=== PATIENT | female | born 1970 | race African-American/Black ===

== ENCOUNTER 2016-05-01 05:43 | Emergency (ER) | payer OTHER ==
--- NOTE | ~2016-05-01 | CT4 ---
[facility] A Service of [facility] RADIOLOGY TEXT RESULTS PATIENT: JEREMIE FINE LOCATION: SED : 68 UNIT #: [id number] AGE: [address]: Dhruv Sosa MD SEX: F ORDER DR: [id number] [place] [id number] E MR#: [id number] #: [id number] NAME: JEREMIE FINE : 1970 SEX: F STUDY DATE/TIME: 05/01/2016 6:10 UNIT: SED ROOM: STUDY DESCRIPTION: CT Abd and Pelv Wo Cont Attending Physician: Dhruv Sosa M.D. Ordering Physician: Dhruv Sosa M.D. MEDICAL IMAGING REPORT This report is preliminary unless electronic signature is present. EXAM CT scan of the abdomen and pelvis without contrast, 05/01/2016. HISTORY Left flank pain for 3 days. Evaluate for obstructing renal calculus. TECHNIQUE Spiral CT was performed through the abdomen and pelvis without oral or intravenous contrast administration, using renal stone protocol. This CT exam was performed with one or more of the following radiation dose reduction techniques: automatic exposure control, adjustment of mA and/or kV according to patient size, and iterative reconstruction. FINDINGS ABDOMEN: There is diffuse fatty infiltration of the liver. The spleen, pancreas, gallbladder and biliary tree, and adrenal glands are normal. There is no obstructing renal or ureteral calculus. PELVIS: The gut, mesenteric and alena structures are normal. There is no free fluid in the abdomen or pelvis. IMPRESSION 1. No obstructing renal or ureteral calculus. 2. Fatty infiltration of the liver. Dictated by... Monster Quiroga M.D. THIS IS AN ELECTRONICALLY VERIFIED REPORT Monster Quiroga M.D. at 05/02/2016 2:23 PM [facility] A Service [facility] RADIOLOGY TEXT RESULTS PATIENT: JEREMIE FINE LOCATION: SED : 68 UNIT #: [id number] AGE: [address]: Dhruv Sosa MD SEX: F ORDER DR: Genie TD: 05/01/2016 11:05 JOB #: [id number] MEDICAL IMAGING REPORT
--- NOTE | ~2016-05-01 | EKG ---
PATIENT: JEREMIE FINE UNIT #: [id number] Ventricular Rate: 79 BPM Atrial Rate: 79 BPM P-R Interval: 166 ms QRS Duration: 92 ms Q-T Interval: 402 ms QTC Calculation(Bezet): 460 ms P Deering: 40 degrees Calculated R Deering: 1 degrees Calculated T Deering: 16 degrees Diagnosis Line: Normal sinus rhythm Diagnosis Line: Moderate voltage criteria for LVH, may be normal Diagnosis Line: variant Diagnosis Line: Poor R wave progression questionable lead position Diagnosis Line: or body habitus Diagnosis Line: Abnormal ECG Diagnosis Line: When compared with ECG of 24-NOV-2014 00:54, Diagnosis Line: No significant change was found Diagnosis Line: Confirmed by JAYA TOPETE MD ([id number]) on Diagnosis Line: 06/14/2016 7:00:49 AM INTERPRETING MD: CAROL
--- NOTE | ~2016-05-01 | CR63 ---
[facility]. [facility] A Service of [facility] RADIOLOGY TEXT RESULTS PATIENT: JEREMIE FINE LOCATION: SED : 68 UNIT #: [id number] AGE: [address]: Dhruv Sosa MD SEX: F ORDER DR: [id number] [place] [id number] E MR#: [id number] Acc #: [id number] NAME: JEREMIE FINE : 1970 SEX: F STUDY DATE/TIME: 05/01/2016 6:05 UNIT: SED ROOM: STUDY DESCRIPTION: CR Chest 2 View Attending Physician: Dhruv Sosa M.D. Ordering Physician: Dhruv Sosa M.D. MEDICAL IMAGING REPORT This report is preliminary unless electronic signature is present. EXAM Chest PA and lateral, 05/01/2016 HISTORY Cough, left-side chest pain and flank pain for 3 days. Benign essential hypertension, atrial fibrillation. FINDINGS PA and lateral examination of the chest upright shows a good expansion of the parenchyma with a normal distribution of the pulmonary vascularity. There is no indication of congestion, effusion, infiltrate, tumor, or nodular density. The pleural reflections and diaphragmatic contours are normal. The cardiac silhouette and mediastinal anatomy is within normal limits. IMPRESSION Normal chest. Dictated by... Monster Quiroga M.D. THIS IS AN ELECTRONICALLY VERIFIED REPORT Monster Quiroga M.D. at 05/02/2016 2:23 PM MONIE/debra TD: 05/01/2016 11:04 JOB #: [id number] MEDICAL IMAGING REPORT
[~2016-05-01 05:43] MED LIST: ALBUTEROL MININEB NEB; ALBUTEROL17 GM INH; AUGMENTIN875 M1 PO; BENTYL20 M1 PO; BENTYL20 MG PO; COLACE PO; FLEXERIL10 M1 PO; FLEXERIL10 MG PO; GLUCOPHAGE500 M1 PO; IBUPROFEN800 MG PO; IRON1 TA1 PO; IRON1 TAB PO; LISINOPRIL10 MG PO; LISINOPRIL20 MG PO; MICROZIDE12.5 M1 PO; MIRALAX17 GM PO; NAPROSYN500 MG PO; NO MEDICATIONS; PHENERGAN25 M1 PO; PREDNISONE PO; PRILOSEC20 M1 PO; PROMETHAZINE W118 M1 PO; TESSALON200 MG PO; TOPROL XL PO; TYLENOL #3 PO; VITAMIN D-32000 UNIT PO; VITAMIN D400 UNI1 PO; XARELTO20 MG PO; ZITHROMAX1 G/PKT PO; [UNRECOGNIZED DRUG - REMARK]
[2016-05-01 05:49] LABS: URINE SOURCE CLEAN CATCH
[2016-05-01 05:52] LABS: MICRO INDICATED? YES; URINE APPEARANCE HAZY; URINE BILIRUBIN NEG (NEG); URINE BLOOD 3+ (NEG); URINE COLOR YELLOW; URINE GLUCOSE NEG (NORM); URINE KETONE NEG (NEG); URINE LEUKOCYTE ESTERASE NEG (NEG); URINE NITRATE NEG (NEG); URINE PH 5.5 (5-8); URINE PROTEIN NEG (NEG); URINE SPECIFIC GRAVITY 1.025 (1.003-1.035); URINE UROBILINOGEN 0.2 MG/DL (NORM)
[2016-05-01 05:54] LABS: BASOPHIL# 0.1 X10e3 (0-0.3); BASOPHIL% 0.8 % (0-2.5); CULTURE INDICATED? NO; EOSINOPHIL# 0.7 X10e3 (0-0.7); EOSINOPHIL% 6.8 % (0.0-7.0); HEMATOCRIT 41.7 % (35.0-45.0); HEMOGLOBIN 13.7 gm/dL (12.0-16.0); LYMPHOCYTE# 2.2 X10e3 (1.0-3.5); LYMPHOCYTE% 22.7 % (17.0-45.0); MEAN CELL VOLUME 88.8 FL (83-96); MEAN CORPUSCULAR HEMOGLOBIN 29.2 PG (28-34); MEAN CORPUSCULAR HGB CONC 32.9 g/dL (30-36); MEAN PLATELET VOLUME 8.1 FL (6.5-11.5); MONOCYTE# 0.6 X10e3 (0-1.0); MONOCYTE% 6.4 % (3.0-12.0); NEUTROPHIL# 6.1 X10e3 (1.5-7.1); NEUTROPHIL% 63.3 % (40-75); PLATELET COUNT 282 X10e3 (140-420); RED BLOOD COUNT 4.69 X10e (3.90-5.30); RED CELL DISTRIBUTION WIDTH 14.3 % (11.0-15.5); URINE BACTERIA NEG (NEG); URINE RBC 100-200 /[HPF] (0-2); URINE SQUAMOUS EPITHELIAL CELL OCCAS /[HPF]; URINE WBC 0-2 /[HPF] (0-5); WHITE BLOOD COUNT 9.7 X10e3 (4.0-10.5)
[2016-05-01 05:55] LABS: DIFF IND NO
[2016-05-01 06:06] LABS: BLOOD UREA NITROGEN 12 mg/dL (9-23); BUN/CREATININE RATIO 13.33; CARBON DIOXIDE 27 mmol/L (22-31); CHLORIDE 104 mmol/L (100-111); CREATININE SERUM 0.9 mg/dL (0.6-1.4); GLOM FILT RATE Estimated ABOVE60 mL/min (>60); GLUCOSE FASTING 123 mg/dL (70-110); POTASSIUM 3.6 mmol/L (3.5-5.1); SODIUM 139 mmol/L (135-145)
[2016-05-01 06:11] LABS: POC - CKMB 1.2 ng/mL (0.0-7.9); POC - MYOGLOBIN 78.5 ng/mL (0.0-169.0); POC - TROPONIN <0.05 ng/mL (<=0.05)
== END 2016-05-01 06:59 | disposition home or self-care (01) ==
LOC: SED 05:43
PROVIDERS: Emergency Medicine
DX: R31.9 Hematuria, unspecified (principal); J40 Bronchitis, not specified as acute or chronic; R10.9 Unspecified abdominal pain; E11.9 Type 2 diabetes mellitus without complications; I10 Essential (primary) hypertension; I48.91 Unspecified atrial fibrillation
CPT/HCPCS: 71020; 74176; 80048; 81003; 82553; 83874; 84484; 85025; 93005; 99284